=== PATIENT | female | born 1980 | race Caucasian/White ===

== ENCOUNTER 2021-01-06 10:13 | Emergency (ER) | payer BC ==
[2021-01-06 10:25] VITALS: BP 144/88; PULSE 77; TEMP 98.3; BMI 25.7
[2021-01-06] MEDS ORDERED: KETOROLAC TROMETHAMINE 30 MG/1 ML VIAL ONE (10:34)
[2021-01-06] MEDS ORDERED: ONDANSETRON 4 MG/2 ML VIAL ONE (10:35)
[2021-01-06] MEDS ORDERED: SODIUM CHLORIDE 0.9% 500 ML INFUS.BAG IV ONE (10:36)
[2021-01-06] MEDS ORDERED: KETOROLAC TROMETHAMINE 30 MG/1 ML VIAL IVPUSH ONE (10:36)
[2021-01-06 11:04] LABS: BASO % 0.6 % (0-2.0); PLATELET COUNT 269 K/MM3 (134-434)
[2021-01-06 11:06] LABS: HEMATOCRIT 37.1 % (32.4-45.2); HEMOGLOBIN 12.5 GM/dl (10.7-15.3); LYMPH % 12.2 % (8-40); MCH 28.3 pg (25.7-33.7); MCHC 33.6 g/dl (32.0-36.0); MEAN CELL VOLUME 84.4 fl (80-96); MEAN PLT VOLUME 9.5 fl (7.5-11.1); MONO % 6.9 % (3.8-10.2); NEUT % 79.3 % (42.8-82.8); RDW 12.8 % (11.6-15.6); WHITE BLOOD COUNT 14.8 K/mm3 (4.0-10.8)
[2021-01-06 11:16] LABS: BILIRUBIN,TOTAL 0.4 mg/dl (0.2-1); CALCIUM 8.9 mg/dl (8.5-10); CREATININE 0.5 mg/dl (0.55-1.3); TOT PROT 6.6 g/dl (6.4-8.2)
[2021-01-06 11:33] LABS: EPITHELIAL CELLS MANY /hpf
[2021-01-06] MEDS ORDERED: morphine CARPU-JECT 4 MG/1 ML DISP.SYRIN IVPUSH ONE (12:20)
[2021-01-06] MEDS ORDERED: ACETAMINOPHEN 1000 MG/100 ML VIAL (NON FORMULARY) IVPB ONE (12:22)
[2021-01-06] MEDS ORDERED: ACETAMINOPHEN INJECTION 100 ML IVPB ONE (13:10)
[2021-01-06 13:26] LABS: EPITHELIAL CELLS MODERATE /hpf
== END 2021-01-06 14:39 | disposition home or self-care (01) ==
LOC: FER 10:13
PROC: 3E0333Z Introduction of Anti-inflammatory into Peripheral Vein, Percutaneous Approach (ICD-10-PCS; principal; 2021-01-06)
PROC: 3E0333Z Introduction of Anti-inflammatory into Peripheral Vein, Percutaneous Approach (ICD-10-PCS; 2021-01-06)
PROC: 3E033GC Introduction of Other Therapeutic Substance into Peripheral Vein, Percutaneous Approach (ICD-10-PCS; 2021-01-06)
DX: R10.9 Unspecified abdominal pain (principal); N20.1 Calculus of ureter
CPT/HCPCS: 36415; 74176-TC; 80053; 81003; 81015; 81025; 85025; 87086; 99284-25; J0131

== ENCOUNTER 2021-03-26 17:37 | Emergency (ER) | payer BC, OTHER ==
[2021-03-26 17:54] VITALS: BP 126/82; PULSE 77; TEMP 98.9; BMI 25.8
[2021-03-26 18:39] LABS: HEMOGLOBIN 13.1 GM/dl (10.7-15.3)
[2021-03-26 18:47] LABS: BASO % 0.5 % (0-2.0); EOS % 1.5 % (0-4.5); HEMATOCRIT 38.4 % (32.4-45.2); LYMPH % 25.7 % (8-40); MCH 29.3 pg (25.7-33.7); MEAN CELL VOLUME 86.1 fl (80-96); MONO % 8.7 % (3.8-10.2); NEUT % 63.6 % (42.8-82.8); PLATELET COUNT 296 10^3/uL (134-434); RBC 4.46 M/mm3 (3.60-5.2); WHITE BLOOD COUNT 9.1 K/mm3 (4.0-10.8)
[2021-03-26 18:54] LABS: ALK PHOS 61 U/L (45-117); ANION GAP 11 MMOL/L (8-16); BILIRUBIN,TOTAL 0.4 mg/dl (0.2-1); CHLORIDE 100 mmol/L (98-107); CO2 25 mmol/L (21-32); CREATININE 0.6 mg/dl (0.55-1.3); GLUCOSE,RANDOM 101 mg/dl (74-106); SGOT/AST 15 U/L (15-37); SGPT/ALT 18 U/L (13-61); SODIUM 136 mmol/L (136-145); TOT PROT 6.8 g/dl (6.4-8.2)
== END 2021-03-26 19:54 | disposition home or self-care (01) ==
LOC: FER 17:37
DX: R06.02 Shortness of breath (principal)
CPT/HCPCS: 36415; 71046-TC-FY; 80053; 84484; 84703; 85025; 85379; 93005; 99283-25